=== PATIENT | female | born 1990 ===

== ENCOUNTER → 2018-07-18 | Outpatient (CLI) | payer SELFPAY | LOC: M OUTALCOH 07:51 | DX: Z13.9 Encounter for screening, unspecified (principal); F11.20 Opioid dependence, uncomplicated ==

== ENCOUNTER 2018-08-01 16:00 | Outpatient (RCR) | payer OTHER, SELFPAY | END 2018-08-02 | LOC: M OUTALCOH 16:00 | PROVIDERS: ATTEND Psychiatry & Neurology Psychiatry | DX: F11.20 Opioid dependence, uncomplicated (principal) ==

== ENCOUNTER 2018-08-29 16:00 | Outpatient (RCR) | payer SELFPAY | END 2018-09-02 | LOC: M OUTALCOH 16:00 | PROVIDERS: ATTEND Psychiatry & Neurology Psychiatry | DX: F11.20 Opioid dependence, uncomplicated (principal) ==

== ENCOUNTER → 2018-10-03 | Outpatient (RCR) | payer MEDICAID, SELFPAY | LOC: M OUTALCOH 09-05 16:00 | PROVIDERS: ATTEND Psychiatry & Neurology Psychiatry | DX: F11.20 Opioid dependence, uncomplicated (principal) ==

== ENCOUNTER → 2018-10-31 | Outpatient (RCR) | payer MEDICAID | LOC: M OUTALCOH 10-10 15:10 | PROVIDERS: ATTEND Psychiatry & Neurology Psychiatry | DX: F11.20 Opioid dependence, uncomplicated (principal) ==

== ENCOUNTER 2018-11-27 14:56 | Outpatient (RCR) | payer MEDICAID | END 2018-12-01 | LOC: M OUTALCOH 14:56 | PROVIDERS: ATTEND Psychiatry & Neurology Psychiatry | DX: F11.20 Opioid dependence, uncomplicated (principal) ==

== ENCOUNTER 2018-12-25 15:00 | Outpatient (RCR) | payer MEDICAID | END 2018-12-31 | LOC: M OUTALCOH 15:00 | PROVIDERS: ATTEND Psychiatry & Neurology Psychiatry | DX: F11.20 Opioid dependence, uncomplicated (principal) ==

== ENCOUNTER 2019-01-20 13:00 | Outpatient (RCR) | payer MEDICAID | END 2019-01-31 | LOC: M OUTALCOH 13:00 | PROVIDERS: ATTEND Psychiatry & Neurology Psychiatry | DX: F11.20 Opioid dependence, uncomplicated (principal) ==

== ENCOUNTER 2019-02-26 12:00 | Outpatient (RCR) | payer MEDICAID | END 2019-03-02 | LOC: M OUTALCOH 12:00 | PROVIDERS: ATTEND Psychiatry & Neurology Psychiatry | DX: F11.20 Opioid dependence, uncomplicated (principal) ==

== ENCOUNTER 2019-03-25 15:00 | Outpatient (RCR) | payer MEDICAID | END 2019-04-02 | LOC: M OUTALCOH 15:00 | PROVIDERS: ATTEND Psychiatry & Neurology Psychiatry | DX: F11.20 Opioid dependence, uncomplicated (principal) ==